=== PATIENT | male | born 1945 | race Caucasian/White ===

== ENCOUNTER 2018-02-11 14:54 | Inpatient (IN) | payer OTHER ==
[~2018-02-11] VITALS: Ht 170.2 cm; Wt 76.2 kg
[2018-02-11 15:01] VITALS: Ht 170.2 cm; Wt 76.2 kg
[2018-02-11 15:55] LABS: BASOPHIL % 0.5 % (0-2); PLATELET COUNT 240 x10^3mcL (130-400); RED CELL DISTRIBUTION WIDTH 14.2 % (11.5-14.5)
[2018-02-11 16:08] LABS: CALCIUM 8.8 mg/dL (8.5-10.1); CHLORIDE SERUM 103 mmol/L (98-107); GFR1 > 60 mL/min; GLUCOSE SERUM 123 mg/dL (74-106); POTASSIUM SERUM 3.2 mmol/L (3.5-5.1); SODIUM SERUM 140 mmol/L (136-145)
[2018-02-11 16:13] LABS: ALBUMIN 3.6 g/dL (3.4-5.0); ALKALINE PHOSPHATASE 169 U/L (46-116); ALT/SGPT 87 U/L (16-63); AST/SGOT 103 U/L (15-37); BILIRUBIN TOTAL 1.4 mg/dL (0.20-1.00); TOTAL PROTEIN, SERUM 7.5 g/dL (6.4-8.2)
[2018-02-11 16:41] LABS: LIPASE 10756 IU/L (73-393)
[2018-02-11 17:54] LABS: microscopic required? YES; urine erythrocyte NEGATIVE (NEGATIVE)
[2018-02-11] MEDS ORDERED: ZOF4 PO (18:21)
[2018-02-11] MEDS ORDERED: LOSARTAN POTASS50 M1 PO (18:22)
[2018-02-11] MEDS ORDERED: HYDROCHLOROTHIA25 MG PO (18:22)
[2018-02-11] MEDS ORDERED: PANTOPRAZOLE SO40 M1 PO (18:23)
[2018-02-11] MEDS ORDERED: METOCLOPRAMIDE10 M2 PO (18:23)
[2018-02-11] MEDS ORDERED: AMLODIPINE BESYL5 M2 PO (18:24)
[2018-02-11] MEDS ORDERED: GOOD SENSE OMEP20 MG PO (18:24)
[2018-02-11] MEDS ORDERED: HYDROCHLOROTH12.5 M2 PO (18:25)
[2018-02-11 19:06] VITALS: BP 130/67
[2018-02-11 21:29] VITALS: BP 125/71
[2018-02-12 05:39] VITALS: BP 96/60
[2018-02-12 07:24] LABS: CALCIUM 8.4 mg/dL (8.5-10.1); CARBON DIOXIDE 26.9 mmol/L (21-32); CHLORIDE SERUM 106 mmol/L (98-107); CREATININE SERUM 1.1 mg/dL (0.7-1.3); GFR1 > 60 mL/min; GLUCOSE SERUM 106 mg/dL (74-106); SODIUM SERUM 142 mmol/L (136-145)
[2018-02-12 08:19] LABS: BASOPHIL % 0.1 % (0-2); PLATELET COUNT 192 x10^3mcL (130-400); RED CELL DISTRIBUTION WIDTH 14.3 % (11.5-14.5)
[2018-02-12 09:25] VITALS: BP 95/60
[2018-02-12 12:25] VITALS: BP 95/60
[2018-02-12 17:35] VITALS: BP 112/68
[2018-02-12 20:52] VITALS: BP 122/74
[2018-02-13 05:30] VITALS: BP 106/68
[2018-02-13 07:00] LABS: ALKALINE PHOSPHATASE 218 U/L (46-116); ALT/SGPT 94 U/L (16-63); AST/SGOT 70 U/L (15-37); BILIRUBIN DIRECT 2.12 mg/dL (0.0-0.2); CALCIUM 8.2 mg/dL (8.5-10.1); CARBON DIOXIDE 25.6 mmol/L (21-32); CHLORIDE SERUM 108 mmol/L (98-107); CREATININE SERUM 0.9 mg/dL (0.7-1.3); GFR1 > 60 mL/min; GLUCOSE SERUM 105 mg/dL (74-106); POTASSIUM SERUM 3.4 mmol/L (3.5-5.1); SODIUM SERUM 139 mmol/L (136-145)
[2018-02-13 08:10] LABS: ALBUMIN 2.4 g/dL (3.4-5.0); BASOPHIL % 0.7 % (0-2); PLATELET COUNT 174 x10^3mcL (130-400); RED CELL DISTRIBUTION WIDTH 14.1 % (11.5-14.5); TOTAL PROTEIN, SERUM 5.6 g/dL (6.4-8.2)
[2018-02-13 08:53] LABS: LIPASE 3256 IU/L (73-393)
[2018-02-13 09:56] VITALS: BP 121/70
[2018-02-13 13:07] VITALS: BP 150/79
[2018-02-13 18:03] VITALS: BP 122/76
[2018-02-13 20:59] VITALS: BP 114/71
[2018-02-14 05:24] VITALS: BP 121/68
[2018-02-14 07:00] LABS: BASOPHIL % 1.3 % (0-2); PLATELET COUNT 171 x10^3mcL (130-400); RED CELL DISTRIBUTION WIDTH 14.4 % (11.5-14.5)
[2018-02-14 07:06] LABS: CARBON DIOXIDE 24.7 mmol/L (21-32); CHLORIDE SERUM 105 mmol/L (98-107); CREATININE SERUM 0.8 mg/dL (0.7-1.3); GFR1 > 60 mL/min; GLUCOSE SERUM 103 mg/dL (74-106); POTASSIUM SERUM 3.4 mmol/L (3.5-5.1); SODIUM SERUM 137 mmol/L (136-145)
[2018-02-14 08:03] VITALS: BP 120/74
[2018-02-14 09:56] LABS: BILIRUBIN DIRECT 0.99 mg/dL (0.0-0.2); BILIRUBIN TOTAL 1.6 mg/dL (0.20-1.00)
[2018-02-14 09:57] LABS: ALBUMIN 2.3 g/dL (3.4-5.0); TOTAL PROTEIN, SERUM 5.5 g/dL (6.4-8.2)
[2018-02-14 12:01] VITALS: BP 125/74
[2018-02-14 17:38] VITALS: BP 138/77
[2018-02-14 21:15] VITALS: BP 155/97
[2018-02-15 05:58] VITALS: BP 126/76
[2018-02-15 06:32] LABS: BILIRUBIN DIRECT 2.36 mg/dL (0.0-0.2); BILIRUBIN TOTAL 2.9 mg/dL (0.20-1.00)
[2018-02-15 06:49] LABS: ALKALINE PHOSPHATASE 247 U/L (46-116); ALT/SGPT 56 U/L (16-63); AST/SGOT 50 U/L (15-37); CALCIUM 8.1 mg/dL (8.5-10.1); CARBON DIOXIDE 24.6 mmol/L (21-32); CHLORIDE SERUM 107 mmol/L (98-107); CREATININE SERUM 0.9 mg/dL (0.7-1.3); GFR1 > 60 mL/min; GLUCOSE SERUM 96 mg/dL (74-106); POTASSIUM SERUM 3.7 mmol/L (3.5-5.1); SODIUM SERUM 140 mmol/L (136-145)
[2018-02-15 06:59] LABS: ALBUMIN 2.4 g/dL (3.4-5.0); TOTAL PROTEIN, SERUM 4.8 g/dL (6.4-8.2)
[2018-02-15 07:01] LABS: ALBUMIN 2.2 g/dL (3.4-5.0); TOTAL PROTEIN, SERUM 5.4 g/dL (6.4-8.2)
[2018-02-15 09:58] VITALS: BP 118/72
[2018-02-15 12:44] VITALS: BP 138/76
[2018-02-15 17:15] VITALS: BP 134/83
[2018-02-15 21:57] VITALS: BP 125/73
[2018-02-16 05:45] VITALS: BP 126/72
[2018-02-16 09:52] VITALS: BP 137/77
[2018-02-16 13:02] VITALS: BP 139/78
[2018-02-16 13:12] VITALS: BP 139/78
== END 2018-02-16 13:58 | disposition home or self-care (01) | DRG 439 ==
LOC: ED 14:54 → DU 17:59
PROVIDERS: Emergency Medicine; Internal Medicine; Internal Medicine Gastroenterology
PROC: 0DJ08ZZ Inspection of Upper Intestinal Tract, Via Natural or Artificial Opening Endoscopic (ICD-10-PCS; principal; 2018-02-15 09:15)
PROC: 0F798DZ Dilation of Common Bile Duct with Intraluminal Device, Via Natural or Artificial Opening Endoscopic (ICD-10-PCS; 2018-02-15 09:15)
DX: K85.10 Biliary acute pancreatitis without necrosis or infection (principal); K81.0 Acute cholecystitis; E44.0 Moderate protein-calorie malnutrition; I10 Essential (primary) hypertension; F17.210 Nicotine dependence, cigarettes, uncomplicated; Z68.27 Body mass index [BMI] 27.0-27.9, adult; Z85.01 Personal history of malignant neoplasm of esophagus
CPT/HCPCS: 43235; 43262; C1769; C2625; C9113; J1610; J2270; J2405; J2543; J2550; J2704; J3480; J3490; J7030; J7042; J7120; J8597; Q0092; Q9967

== ENCOUNTER 2018-08-28 14:33 | Emergency (ER) | payer OTHER ==
[~2018-08-28] VITALS: Ht 170.2 cm; Wt 73.5 kg
[~2018-08-28 14:33] MED LIST: AMLODIPINE BESYL5 M2 PO; GOOD SENSE OMEP20 MG PO; HYDROCHLOROTH12.5 M2 PO; HYDROCHLOROTHIA25 MG PO; LOSARTAN POTASS50 M1 PO; METOCLOPRAMIDE10 M2 PO; PANTOPRAZOLE SO40 M1 PO; ZOF4 PO
[2018-08-28 15:14] VITALS: Ht 170.2 cm; Wt 73.5 kg
[2018-08-28 17:51] LABS: microscopic required? NO
[2018-08-28 18:06] LABS: BASOPHIL % 0.7 % (0-2); PLATELET COUNT 235 x10^3mcL (130-400); RED CELL DISTRIBUTION WIDTH 13.7 % (11.5-14.5)
[2018-08-28 18:08] LABS: UA SPECIFIC GRAVITY >=1.030 (1.005-1.035); urine erythrocyte NEGATIVE (NEGATIVE)
[2018-08-28 18:15] LABS: CALCIUM 8.6 mg/dL (8.5-10.1); CARBON DIOXIDE 28.9 mmol/L (21-32); CHLORIDE SERUM 104 mmol/L (98-107); CREATININE SERUM 0.8 mg/dL (0.7-1.3); GLUCOSE SERUM 88 mg/dL (74-106); POTASSIUM SERUM 3.7 mmol/L (3.5-5.1); SODIUM SERUM 141 mmol/L (136-145)
[2018-08-28 18:20] LABS: ALBUMIN 3.9 g/dL (3.4-5.0); ALKALINE PHOSPHATASE 64 U/L (46-116); ALT/SGPT 22 U/L (16-63); AST/SGOT 19 U/L (15-37); BILIRUBIN TOTAL 0.38 mg/dL (0.20-1.00); LIPASE 98 IU/L (73-393); TOTAL PROTEIN, SERUM 7.3 g/dL (6.4-8.2)
[2018-08-28 21:51] VITALS: BP 150/86
== END 2018-08-28 21:51 | disposition home or self-care (01) ==
LOC: ED 14:33
PROVIDERS: Emergency Medicine
DX: M54.5 Low back pain (principal); R10.9 Unspecified abdominal pain; I10 Essential (primary) hypertension
CPT/HCPCS: 36415; J1885